=== PATIENT | female | born 1945 | race Hispanic/Latino ===

== ENCOUNTER 2023-01-21 09:24 | Emergency (ER) | payer MEDICARE, OTHER, SELFPAY ==
[2023-01-21 09:28] VITALS: BP 143/76; PULSE 70; RESP 14; TEMP 36.3; O2SAT 98; BMI 27.3
--- NOTE | 2023-01-21 10:52 | ED.ABDPAIN ---
HPI - Abdominal Pain <Frank Lao PA-C - Last Filed: 01/21/23 19:12> General Chief Complaint: Abdominal Pain Stated Complaint: L/ lower ABD Hernia pain Time Seen by Provider: 01/21/23 10:17 Source: patient Mode of arrival: Ambulatory History of Present Illness HPI narrative: 77-year-old female with past medical history inguinal hernia on the left side, presents to the ED with 1 day of left lower quadrant pain. Patient states that her hernia disappeared earlier today, instead to be replaced by left lower quadrant pain. Patient denies fever, chills, nausea, vomiting, chest pain, shortness of breath, dysuria, lightheadedness, dizziness, syncope. Related Data Previous Rx's Medication Instructions Recorded ciprofloxacin HCl 500 mg tablet 500 mg PO Q12H 5 days #10 tabs 01/21/23 metronidazole 500 mg tablet 500 mg PO Q8H 5 days #15 tabs 01/21/23 Allergies Allergy/AdvReac Type Severity Reaction Status Date / Time nitrofurantoin Allergy Verified 01/21/23 09:28 Review of Systems <Frank Lao PA-C - Last Filed: 01/21/23 19:12> Review of Systems ROS Unobtainable: All systems reviewed & are unremarkable except as noted in HPI and below Constitutional Constitutional: Denies chills, Denies fatigue, Denies fever(s), Denies frequent falls, Denies lethargy and Denies weakness Eyes Eyes: Denies change in vision, Denies eye discharge, Denies irritation and Denies loss of vision ENT Ears, Nose, Mouth, and Throat: Denies change in voice, Denies dizziness, Denies neck pain, Denies sore throat and Denies throat swelling Cardiovascular Cardiovascular: Denies chest pain, Denies irregular heart rhythm, Denies lightheadedness, Denies palpitations, Denies dyspnea, Denies dyspnea on exertion and Denies orthopnea Respiratory Respiratory: Denies cough, Denies dyspnea, Denies dyspnea on exertion and Denies wheezing Gastrointestinal Gastrointestinal: Reports abdominal pain, Denies change in bowel habits, Denies diarrhea, Denies nausea and Denies vomiting Genitourinary Genitourinary: Denies hematuria, Denies flank pain, Denies urinary incontinence and Denies urinary urgency Musculoskeletal Musculoskeletal: Denies back pain, Denies muscle weakness, Denies neck pain, Denies numbness and Denies tingling Integumentary/Breasts Skin/Breast: Denies pruritus, Denies erythema, Denies rash and Denies wounds Neurologic Neurologic: Denies behavioral changes, Denies confusion, Denies dizziness, Denies frequent falls, Denies loss of vision, Denies numbness, Denies tingling and Denies weakness Psychiatric Psychiatric: Denies anxiety, Denies behavioral changes, Denies confusion, Denies depression, Denies homicidal ideation and Denies suicidal ideation Endocrine Endocrine: Denies fatigue, Denies flushing and Denies palpitations Hematologic/Lymphatic Hematologic/Lymphatic: Denies easy bruising Allergic/Immunologic Allergic/Immunologic: Denies urticaria, Denies throat swelling and Denies wheezing Patient History <Frank Lao PA-C - Last Filed: 01/21/23 19:12> Social History Smoking Status: Unknown if ever smoked Smoking Status: Unknown if ever smoked alcohol intake frequency: holidays/special occasions only Substance Use Type: does not use Exam <Frank Lao PA-C - Last Filed: 01/21/23 19:12> Narrative Exam Narrative: Const General:?cooperative, healthy appearing and comfortable [facility] Head:?normal to inspection Ears:?hearing grossly normal bilaterally Nose:?external nose normal Face and sinus:?normal facial exam and sinuses nontender Mouth:?oral mucosae normal Throat:?posterior oropharynx normal Eyes General:?appearance normal, both eyes and all related structures Neck Neck:?normal visual inspection and no lymphadenopathy noted Resp Effort & Inspection:?normal respiratory effort Auscultation:?clear to auscultation bilaterally Cardio Rate:?regular rate Rhythm:?regular rhythm GI Abdomen is soft, nondistended. Abdomen is tender to palpation in the left lower quadrant. There is no CVA tenderness. Neuro General:?patient alert, patient awake and patient oriented x3 Initial Vital Signs Initial Vital Signs: Vital Signs Temperature 97.3 F L 01/21/23 09:28 Pulse Rate 70 01/21/23 09:28 Respiratory Rate 14 01/21/23 09:28 Blood Pressure 143/76 H 01/21/23 09:28 Pulse Oximetry 98 01/21/23 09:28 Oxygen Delivery Method Room Air 01/21/23 09:28 <Meagan Paul DO - Last Filed: 01/21/23 20:47> Initial Vital Signs Initial Vital Signs: Vital Signs Temperature 97.3 F L 01/21/23 09:28 Pulse Rate 70 01/21/23 09:28 Respiratory Rate 14 01/21/23 09:28 Blood Pressure 143/76 H 01/21/23 09:28 Pulse Oximetry 98 01/21/23 09:28 Oxygen Delivery Method Room Air 01/21/23 09:28 Course <Frank Lao PA-C - Last Filed: 01/21/23 19:12> Orders Ordered: Discontinued Medications Ketorolac Tromethamine (Ketorolac 30 Mg/Ml Vial) 15 mg IV NOW ONE Stop: 01/21/23 11:00 Last Admin: 01/21/23 11:09 Dose: 15 mg Documented By: CTS Vital Signs Vital signs: Vital Signs - 8 hr 01/21/23 13:42 Pulse Rate 74 Respiratory Rate 16 Blood Pressure 136/84 Pulse Oximetry 97 Oxygen Delivery Method Room Air <Meagan Paul DO - Last Filed: 01/21/23 20:47> Orders Ordered: Discontinued Medications Ketorolac Tromethamine (Ketorolac 30 Mg/Ml Vial) 15 mg IV NOW ONE Stop: 01/21/23 11:00 Last Admin: 01/21/23 11:09 Dose: 15 mg Documented By: CTS Vital Signs Vital signs: Vital Signs - 8 hr 01/21/23 13:42 Pulse Rate 74 Respiratory Rate 16 Blood Pressure 136/84 Pulse Oximetry 97 Oxygen Delivery Method Room Air MDM - Abdominal Pain <DANIELLE Baptiste Last Filed: 01/21/23 19:12> Lab Data 01/21/23 10:55 01/21/23 10:55 Labs: Lab Results 01/21/23 01/21/23 01/21/23 Range/Units 10:55 10:55 10:55 WBC 8.3 (4.5-11.0) X10^3/uL RBC 4.46 (4.0-5.2) X10^6/uL Hgb 13.3 (12.0-16.0) g/dL Hct 39.5 (36-46) % MCV 88.6 (80-100) fL MCH 29.8 (26-34) PG MCHC 33.7 (30-36) % RDW 15.4 H (11.6-14.8) % Plt Count 262 (150-400) X10^3/uL Neut % (Auto) 62.5 (50-75) % Lymph % (Auto) 27.0 (25-40) % [place] % (Auto) 7.6 (3-14) % Eos % (Auto) 2.0 (2-4) % Baso % (Auto) 0.9 (0-2) % Neut # (Auto) 5200 (9115-9335) /uL Lymph # (Auto) 2200 (5458-3467) /uL [place] # (Auto) 600 (0-900) /uL Eos # (Auto) 200 (0-450) /uL Baso # (Auto) 100 (0-100) /uL Sodium 137 (137-145) mmol/L Potassium 3.7 (3.4-5.1) mmol/L Chloride 103 (98-107) mmol/L Carbon Dioxide 28 (22-32) mmol/L BUN 14 (7-17) mg/dL Creatinine 0.71 (0.52-1.04) mg/dL Estimated GFR > 60 (>60) mL/min BUN/Creatinine Ratio 19.7 (6-22) Glucose 88 (80-110) mg/dL Calcium 8.6 (8.4-10.2) mg/dL Total Bilirubin 0.7 (0.2-1.3) mg/dL AST 24 (14-36) IU/L ALT 15 (<35) IU/L Alkaline Phosphatase 82 (38-126) U/L Total Protein 7.1 (6.3-8.2) g/dL Albumin 3.8 (3.5-5.0) g/dL Globulin 3.3 (1.7-4.1) g/dL Albumin/Globulin Ratio 1.2 (1.0-2.8) Lipase 68 (23-300) U/L Urine Color Yellow Urine Appearance Clear Urine pH 6.0 (4.5-8.0) Ur Specific [place] 1.015 (1.000-1.035) Urine Protein Negative (Negative) Urine Glucose (UA) Negative (Negative) g/dL Urine Ketones Negative (NEGATIVE) Urine Occult Blood Trace-lysed (Negative) Urine Nitrate Negative (Negative) Urine Bilirubin Negative (NEGATIVE) Urine Urobilinogen 0.2 (0.2) E.U./dL Ur Leukocyte Esterase Negative (NEGATIVE) Urine RBC 0-1/hpf (0-5/HPF) Urine WBC 0-1/hpf (0-5/HPF) Ur Squamous Epith Cells 0-1 /hpf (0-5/HPF) Urine Bacteria None seen (None) Ur Culture Indicated? Cult not indicated MDM Narrative Medical decision making narrative: 77-year-old female with past medical history inguinal hernia on the left side, presents to the ED with 1 day of left lower quadrant pain. Concern for incarcerated versus strangulated hernia versus diverticulitis versus other intra-abdominal pathology versus other. Will obtain labs, lipase, CT abdomen pelvis. Will give ketorolac for pain. Patient's symptoms improved with ketorolac. CT abdomen pelvis shows acute uncomplicated diverticulitis. Prescribed antibiotics for patient. Recommend clear liquid diet for the next 3 days gradually increasing diet as tolerated. ED return precautions were discussed with patient. Patient verbalized understanding. Medical records reviewed: Yes <Meagan Paul DO - Last Filed: 01/21/23 20:47> Lab Data Labs: Lab Results 01/21/23 01/21/23 01/21/23 Range/Units 10:55 10:55 10:55 WBC 8.3 (4.5-11.0) X10^3/uL RBC 4.46 (4.0-5.2) X10^6/uL Hgb 13.3 (12.0-16.0) g/dL Hct 39.5 (36-46) % MCV 88.6 (80-100) fL MCH 29.8 (26-34) PG MCHC 33.7 (30-36) % RDW 15.4 H (11.6-14.8) % Plt Count 262 (150-400) X10^3/uL Neut % (Auto) 62.5 (50-75) % Lymph % (Auto) 27.0 (25-40) % [place] % (Auto) 7.6 (3-14) % Eos % (Auto) 2.0 (2-4) % Baso % (Auto) 0.9 (0-2) % Neut # (Auto) 5200 (7299-0986) /uL Lymph # (Auto) 2200 (7022-6844) /uL [place] # (Auto) 600 (0-900) /uL Eos # (Auto) 200 (0-450) /uL Baso # (Auto) 100 (0-100) /uL Sodium 137 (137-145) mmol/L Potassium 3.7 (3.4-5.1) mmol/L Chloride 103 (98-107) mmol/L Carbon Dioxide 28 (22-32) mmol/L BUN 14 (7-17) mg/dL Creatinine 0.71 (0.52-1.04) mg/dL Estimated GFR > 60 (>60) mL/min BUN/Creatinine Ratio 19.7 (6-22) Glucose 88 (80-110) mg/dL Calcium 8.6 (8.4-10.2) mg/dL Total Bilirubin 0.7 (0.2-1.3) mg/dL AST 24 (14-36) IU/L ALT 15 (<35) IU/L Alkaline Phosphatase 82 (38-126) U/L Total Protein 7.1 (6.3-8.2) g/dL Albumin 3.8 (3.5-5.0) g/dL Globulin 3.3 (1.7-4.1) g/dL Albumin/Globulin Ratio 1.2 (1.0-2.8) Lipase 68 (23-300) U/L Urine Color Yellow Urine Appearance Clear Urine pH 6.0 (4.5-8.0) Ur Specific [place] 1.015 (1.000-1.035) Urine Protein Negative (Negative) Urine Glucose (UA) Negative (Negative) g/dL Urine Ketones Negative (NEGATIVE) Urine Occult Blood Trace-lysed (Negative) Urine Nitrate Negative (Negative) Urine Bilirubin Negative (NEGATIVE) Urine Urobilinogen 0.2 (0.2) E.U./dL Ur Leukocyte Esterase Negative (NEGATIVE) Urine RBC 0-1/hpf (0-5/HPF) Urine WBC 0-1/hpf (0-5/HPF) Ur Squamous Epith Cells 0-1 /hpf (0-5/HPF) Urine Bacteria None seen (None) Ur Culture Indicated? Cult not indicated Discharge Plan Departure Patient Disposition: Home Clinical Impression: Diverticulitis Instructions: DI for Diverticulitis Activity Restrictions/Additional Instructions: You were evaluated in the ED today for abdominal pain. Your labs were normal. Your CT abdomen and pelvis does show acute diverticulitis, which is an infection in the colon. You are being prescribed antibiotics for this. Please take those as prescribed. Please consume a clear liquid diet for the next 3 days, and slowly advance the diet as it feels comfortable. Please return to the ED if you have worsening symptoms, persistent vomiting, fever, chills. Prescriptions: New metronidazole 500 mg tablet 500 mg PO Q8H 5 Days Qty: 15 0RF ciprofloxacin HCl 500 mg tablet 500 mg PO Q12H 5 Days Qty: 10 0RF Referrals: Miscellaneous,Doctor, MD [Primary Care Provider] - Stand Alone Forms: Patient Portal/API, Work Release Note <Meagan Paul DO - Last Filed: 01/21/23 20:47> Cosign ED Attending Eanature Attestation: I was immediately available in the department for consultation. Documentation has been reviewed.
--- NOTE | 2023-01-21 10:59 | DI.CT.S_ITS ---
PROCEDURE: CT ABDOMEN PELVIS W CON INDICATIONS: LLQ pain TECHNIQUE: After the administration of intravenous contrast, axial sections acquired from the lung bases to the pubic symphysis. Coronal and sagittal reformats were performed. For radiation dose reduction, the following was used: automated exposure control, adjustment of mA and/or kV according to patient size. COMPARISON: None. FINDINGS: Image quality: Excellent. Lung bases: 1 cm calcification noted at the right lung base Heart: No significant findings. ABDOMEN: Liver: Unremarkable. Small focus of hepatic fatty infiltration noted adjacent to the falciform ligament Gallbladder: Unremarkable. Biliary ducts: Unremarkable. Pancreas: Unremarkable. Spleen: Unremarkable. Adrenal Glands: Unremarkable. Kidneys and Ureters: Unremarkable. Stomach and Bowel: Multiple diverticula arise from the sigmoid colon. In the proximal sigmoid colon there is wall thickening and pericolonic inflammatory change, consistent with acute diverticulitis. No adjacent abscess or free air present. Peritoneum: No abnormal intraperitoneal fluid. No free air. Ventral Wall: Left inguinal hernia contains fat and a small amount of fluid without bowel involvement. Abdominal Nodes: No retroperitoneal or mesenteric adenopathy by size criteria. Vessels: Bilateral iliac stents present. PELVIS: Pelvic Organs: Unremarkable. Bladder: Unremarkable. Pelvic Nodes: No enlarged lymph nodes. Miscellaneous: No hernias are seen. Bones: Degenerative disc disease and arthropathy noted in the lower lumbar spine. IMPRESSION: Acute sigmoid diverticulitis without evidence of free air or bowel obstruction. No abscess. Left inguinal hernia contains fat without bowel involvement Calcified granuloma, right lung base Approved by: Nils Lopez M.D. on 01/21/2023 at 11:55
[2023-01-21 11:08] LABS: Add Manual Diff / Slide Review NO; Basophils Absolute Auto 100 /uL (0-100); Basophils Percent Auto 0.9 % (0-2); Eosinophils Absolute Auto 200 /uL (0-450); Hematocrit 39.5 % (36-46); Hemoglobin 13.3 g/dL (12.0-16.0); Lymphocytes Absolute Auto 2200 /uL (1100-4500); Mean Corpuscular HGB Conc 33.7 % (30-36); Mean Corpuscular Hemoglobin 29.8 PG (26-34); Mean Corpuscular Volume 88.6 fL (80-100); Monocytes Absolute Auto 600 /uL (0-900); Monocytes Percent Auto 7.6 % (3-14); Neutrophils Absolute Auto 5200 /uL (1500-7000); Neutrophils Percent Auto 62.5 % (50-75); Platelet Count 262 X10^3/uL (150-400); Red Blood Cell Count 4.46 X10^6/uL (4.0-5.2); Red Cell Distribution Width 15.4 % (11.6-14.8); White Blood Cell Count 8.3 X10^3/uL (4.5-11.0)
[2023-01-21] MEDS: KETOROLAC 30 MG/ML VIAL 15 MG IV (11:09)
[2023-01-21 11:25] LABS: Appearance Urine UA CLEAR; Bilirubin Urine UA NEGATIVE (NEGATIVE); Color Urine UA YELLOW; Glucose Urine UA NEGATIVE (Negative); Ketones Urine UA NEGATIVE (NEGATIVE); Leukocyte Esterase Urine UA NEGATIVE (NEGATIVE); Nitrite Urine UA NEGATIVE (Negative); Occult Blood Urine UA TRACE-LYSED (Negative); Protein Urine UA NEGATIVE (Negative); Specific Gravity Urine UA 1.015 (1.000-1.035); Urobilinogen Urine UA 0.2 E.U./dL (0.2)
[2023-01-21 11:33] LABS: Alanine Aminotransferase 15 IU/L (<35); Albumin 3.8 g/dL (3.5-5.0); Albumin Globulin Ratio 1.2 (1.0-2.8); Alkaline Phosphatase 82 U/L (38-126); Aspartate Aminotransferase 24 IU/L (14-36); BUN Creatinine Ratio 19.7 (6-22); Bilirubin Total 0.7 mg/dL (0.2-1.3); Blood Urea Nitrogen 14 mg/dL (7-17); Calcium 8.6 mg/dL (8.4-10.2); Carbon Dioxide 28 mmol/L (22-32); Chloride 103 mmol/L (98-107); Estimated Glomerular Filt Rate > 60 mL/min (>60); Globulin 3.3 g/dL (1.7-4.1); Glucose 88 mg/dL (80-110); HEMOLYSIS < 15 (0-50); Lipase 68 U/L (23-300); Potassium 3.7 mmol/L (3.4-5.1); Sodium 137 mmol/L (137-145); Total Protein 7.1 g/dL (6.3-8.2)
[2023-01-21 11:38] LABS: Bacteria Urine None Seen; RBC Urine 0-1/HPF (0-5/HPF); Squamous Epithelial Cell Urine 0-1 /HPF (0-5/HPF); WBC Urine 0-1/HPF (0-5/HPF)
[2023-01-21 11:39] LABS: Culture Indicated Urine Cult Not Indicated
[2023-01-21 13:42] VITALS: BP 136/84; PULSE 74; RESP 16; O2SAT 97
== END 2023-01-21 13:42 | disposition home or self-care (01) ==
PROVIDERS: Emergency Medicine; Emergency Provider Student in an Organized Health Care Education/Training Program
DX: K57.92 Diverticulitis of intestine, part unspecified, without perforation or abscess without bleeding (principal)
CPT/HCPCS: 36415; 74177; 80053; 81001; 83690; 85025; 96374; 99284; J1885; Q9967

== ENCOUNTER 2023-03-03 08:18 | Emergency (ER) | payer MEDICARE, OTHER, SELFPAY ==
[2023-03-03] VITALS (7 sets, daily range): BP systolic 120–159; BP diastolic 60–75; PULSE 61–67; RESP 20–26; TEMP 36.6; O2SAT 96–99; BMI 27.3
[2023-03-03 08:55] LABS: Add Manual Diff / Slide Review NO; Basophils Absolute Auto 100 /uL (0-100); Basophils Percent Auto 1.1 % (0-2); Eosinophils Absolute Auto 200 /uL (0-450); Hematocrit 40.9 % (36-46); Hemoglobin 13.8 g/dL (12.0-16.0); Lymphocytes Absolute Auto 2100 /uL (1100-4500); Lymphocytes Percent Auto 29.5 % (25-40); Mean Corpuscular HGB Conc 33.7 % (30-36); Mean Corpuscular Hemoglobin 29.3 PG (26-34); Mean Corpuscular Volume 87.1 fL (80-100); Monocytes Absolute Auto 500 /uL (0-900); Monocytes Percent Auto 6.6 % (3-14); Neutrophils Absolute Auto 4200 /uL (1500-7000); Neutrophils Percent Auto 59.8 % (50-75); Platelet Count 310 X10^3/uL (150-400); Red Cell Distribution Width 14.8 % (11.6-14.8)
[2023-03-03 09:00] LABS: INR 1.1 (0.9-1.3); Prothrombin Time 12.5 SECONDS (10.1-12.7)
--- NOTE | 2023-03-03 09:08 | ED_ITS ---
HPI - Abdominal Pain General Chief Complaint: Abdominal Pain Stated Complaint: pain LT side lower abd T-3 Time Seen by Provider: 03/03/23 08:48 Source: patient and family Mode of arrival: Ambulatory History of Present Illness HPI narrative: Patient 77-year-old female history of hypertension coronary arteries presenting today with left lower quadrant pain. She reports that she is a left inguinal hernia but her pain is in a different spot. It has been there for the last 3 days. Sharp stabbing nonradiating. No change in bowel movements except that she does report some mucus. No blood. Denies nausea vomiting or fever. No chest pain palpitations or shortness of breath. No painful or frequent urination. Related Data Previous Rx's Medication Instructions Recorded ciprofloxacin HCl 500 mg tablet 500 mg PO BID #14 tabs 03/03/23 (Cipro) metronidazole 500 mg tablet 500 mg PO Q8H 7 days #21 tabs 03/03/23 Allergies Allergy/AdvReac Type Severity Reaction Status Date / Time nitrofurantoin Allergy Verified 01/21/23 09:28 Review of Systems Review of Systems ROS Unobtainable: All systems reviewed & are unremarkable except as noted in HPI and below Patient History Social History Smoking Status: Unknown if ever smoked Smoking Status: Unknown if ever smoked alcohol intake frequency: holidays/special occasions only Substance Use Type: does not use Exam Initial Vital Signs Initial Vital Signs: Vital Signs Temperature 97.9 F 03/03/23 08:24 Pulse Rate 64 03/03/23 08:24 Respiratory Rate 20 03/03/23 08:24 Blood Pressure 122/62 03/03/23 08:24 Pulse Oximetry 99 03/03/23 08:24 Oxygen Delivery Method Room Air 03/03/23 08:24 GENERAL: Alert pleasant 77-year-old female and in no acute distress. HEENT: Head atraumatic,EOMI, pupils reactive, face symmetric, moist mucous membranes CARDIOVASCULAR: Regular rate and rhythm without murmurs, rubs or gallops. RESPIRATORY: Breath sounds equal bilaterally, no wheezes rales or rhonchi. ABDOMEN: Soft, left lower quadrant pain no guarding no rebound EXTREMITIES: Normal range of motion, no clubbing or edema. Neurovascularly intact NEUROLOGICAL: Alert and oriented x4. SKIN: Warm, dry, no laceration, no petechiae, no rashes or lesions. Course Orders Ordered: Discontinued Medications Ondansetron HCl (Ondansetron 4 Mg/2 Ml Inj) 4 mg IV NOW PRN PRN Reason: Nausea And Vomiting Ondansetron HCl (Ondansetron 4 Mg Odt) 4 mg PO NOW PRN PRN Reason: Nausea And Vomiting Vital Signs Vital signs: Vital Signs - 8 hr 03/03/23 08:24 03/03/23 08:37 03/03/23 08:37 Temperature 97.9 F Pulse Rate 64 67 Respiratory Rate 20 Blood Pressure 122/62 128/74 Pulse Oximetry 99 98 Oxygen Delivery Method Room Air 03/03/23 09:00 03/03/23 09:00 03/03/23 09:30 Temperature Pulse Rate 63 Respiratory Rate 20 Blood Pressure 159/75 H 139/70 Pulse Oximetry 98 Oxygen Delivery Method 03/03/23 09:30 Temperature Pulse Rate 65 Respiratory Rate 22 Blood Pressure Pulse Oximetry 96 Oxygen Delivery Method MDM - Abdominal Pain Lab Data 03/03/23 08:45 03/03/23 08:45 Labs: Lab Results 03/03/23 03/03/23 03/03/23 Range/Units 08:45 08:45 08:45 WBC 7.0 (4.5-11.0) X10^3/uL RBC 4.70 (4.0-5.2) X10^6/uL Hgb 13.8 (12.0-16.0) g/dL Hct 40.9 (36-46) % MCV 87.1 (80-100) fL MCH 29.3 (26-34) PG MCHC 33.7 (30-36) % RDW 14.8 (11.6-14.8) % Plt Count 310 (150-400) X10^3/uL Neut % (Auto) 59.8 (50-75) % Lymph % (Auto) 29.5 (25-40) % [place] % (Auto) 6.6 (3-14) % Eos % (Auto) 3.0 (2-4) % Baso % (Auto) 1.1 (0-2) % Neut # (Auto) 4200 (2467-3500) /uL Lymph # (Auto) 2100 (6806-5352) /uL [place] # (Auto) 500 (0-900) /uL Eos # (Auto) 200 (0-450) /uL Baso # (Auto) 100 (0-100) /uL PT 12.5 (10.1-12.7) SECONDS INR 1.1 (0.9-1.3) Sodium 135 L (137-145) mmol/L Potassium 3.5 (3.4-5.1) mmol/L Chloride 100 (98-107) mmol/L Carbon Dioxide 29 (22-32) mmol/L BUN 20 H (7-17) mg/dL Creatinine 0.90 (0.52-1.04) mg/dL Estimated GFR > 60 (>60) mL/min BUN/Creatinine Ratio 22.2 H (6-22) Glucose 101 (80-110) mg/dL Calcium 9.0 (8.4-10.2) mg/dL Total Bilirubin 0.6 (0.2-1.3) mg/dL AST 24 (14-36) IU/L ALT 20 (<35) IU/L Alkaline Phosphatase 101 (38-126) U/L Total Protein 7.7 (6.3-8.2) g/dL Albumin 4.1 (3.5-5.0) g/dL Globulin 3.6 (1.7-4.1) g/dL Albumin/Globulin Ratio 1.1 (1.0-2.8) Lipase 108 (23-300) U/L Urine RBC (0-5/HPF) Urine WBC (0-5/HPF) Ur Squamous Epith Cells (0-5/HPF) Urine Bacteria (None) Ur Culture Indicated? 03/03/23 Range/Units 09:49 WBC (4.5-11.0) X10^3/uL RBC (4.0-5.2) X10^6/uL Hgb (12.0-16.0) g/dL Hct (36-46) % MCV (80-100) fL MCH (26-34) PG MCHC (30-36) % RDW (11.6-14.8) % Plt Count (150-400) X10^3/uL Neut % (Auto) (50-75) % Lymph % (Auto) (25-40) % [place] % (Auto) (3-14) % Eos % (Auto) (2-4) % Baso % (Auto) (0-2) % Neut # (Auto) (2862-8256) /uL Lymph # (Auto) (6313-4625) /uL [place] # (Auto) (0-900) /uL Eos # (Auto) (0-450) /uL Baso # (Auto) (0-100) /uL PT (10.1-12.7) SECONDS INR (0.9-1.3) Sodium (137-145) mmol/L Potassium (3.4-5.1) mmol/L Chloride (98-107) mmol/L Carbon Dioxide (22-32) mmol/L BUN (7-17) mg/dL Creatinine (0.52-1.04) mg/dL Estimated GFR (>60) mL/min BUN/Creatinine Ratio (6-22) Glucose (80-110) mg/dL Calcium (8.4-10.2) mg/dL Total Bilirubin (0.2-1.3) mg/dL AST (14-36) IU/L ALT (<35) IU/L Alkaline Phosphatase (38-126) U/L Total Protein (6.3-8.2) g/dL Albumin (3.5-5.0) g/dL Globulin (1.7-4.1) g/dL Albumin/Globulin Ratio (1.0-2.8) Lipase (23-300) U/L Urine RBC 0-1/hpf (0-5/HPF) Urine WBC 0-1/hpf (0-5/HPF) Ur Squamous Epith Cells 0-1 /hpf (0-5/HPF) Urine Bacteria None seen (None) Ur Culture Indicated? Cult not indicated Point of care testing: Urine Dip Bedside Urine Glucose Negative Bedside Urine Bilirubin - Negative Bedside Urine Ketone - Negative Urine Specific [place] 1.010 Bedside Urine Occult Blood +/- Bedside Urine pH 6.0 Bedside Urine Protein - Negative Bedside Urine Urobilinogen - Negative Bedside Urine Nitrite - Negative Bedside Urine Leukocytes - Negative Esterase Imaging Data CT scan - abdomen/pelvis: Radiologist's Impression: PROCEDURE:? CT ABDOMEN PELVIS W CON ? INDICATIONS:? LLq pain ? TECHNIQUE:? After the administration of intravenous contrast, axial sections acquired from the lung bases to the pubic symphysis.? Coronal and sagittal reformats were performed.? For radiation dose reduction, the following was used:? automated exposure control, adjustment of mA and/or kV according to patient size.? ? COMPARISON:? [facility], CT, CT ABDOMEN PELVIS W CON, 01/21/2023, 11:49. ? FINDINGS:? Image quality:? Excellent.? ? Lung bases:? Calcified granuloma in the right lower lobe. Heart:? No significant findings. ? ABDOMEN: Liver:? Unremarkable.? ? Gallbladder:? Unremarkable.? ? Biliary ducts:? Unremarkable.? ? Pancreas:? Unremarkable.? ? Spleen:? Unremarkable.? ? Adrenal Glands:? Unremarkable.? ? Kidneys and Ureters:? Junctional cortical defect of the superior pole of the low left kidney.? No hydronephrosis.? No nephrolithiasis. ? Stomach and Bowel:? Mild focal wall thickening of the distal descending colon, with associated pericolonic fat stranding surrounding a diverticulum.? No evidence perforation.? No adjacent abscess. Peritoneum:? No abnormal intraperitoneal fluid.? No free air.? ? Ventral Wall: ? No hernias.? Abdominal Nodes:? No retroperitoneal or mesenteric adenopathy by size criteria.? Vessels:? Aorta and inferior vena cava are normal in size.? Venous stents of the iliac veins. ? PELVIS: Pelvic Organs:? Unremarkable.? ? Bladder:? Trace air within the urinary bladder Pelvic Nodes: No enlarged lymph nodes.? Miscellaneous:? Left inguinal hernia containing fat. ? Bones:? Unremarkable.? IMPRESSION:? Diverticulitis of the distal descending colon.? No evidence perforation or abscess. ? Moderate left inguinal hernia containing fat. ? ? Dictated by: Gómez Livingston M.D. on 03/03/2023 at 9:58 ? ? ECG Data Interpretation: Normal sinus rhythm rate 62 RI interval 180 QRS [address] changes no T- wave inversions MDM Narrative Medical decision making narrative: Patient is 77-year-old female history of coronary artery disease hypertension presenting with left lower quadrant pain for last couple of days. Symptoms and CT consistent with diverticulitis without complication. This is patient's 2nd episode of diverticulitis. She 1st have episode January 21. She says her pain completely resolved. She was put on Cipro and Flagyl. She was then diagnosed with a UTI last week and put on antibiotics for that. She definitely needs a colonoscopy for a 2nd episode of diverticulitis. She is not had a colonoscopy have discussed this with both patient and her daughter. She is given a general surgeries number. I think reasonable to treat her again with ciprofloxacin and Flagyl it seemed to work last time. She is not requiring anything for pain. Blood work is reassuring without leukocytosis. At this time antibiotics and outpatient management. Discharge Plan Departure Patient Disposition: Home Clinical Impression: Diverticulitis Instructions: DI for Diverticulitis Activity Restrictions/Additional Instructions: *You have been diagnosed with diverticulitis *What to do: At this time recommend low-fiber diet until pain has improved and then resume high-fiber diet. Continue to drink fluids. You definitely need a colonoscopy. This is your 2nd diverticulitis in 2 months. Please call to schedule appointment. *Continue to take medications as directed--> SENT TO [facility] Cipro 500 mg twice a day for 7 days Flagyl 500 mg 3 times a day for 7 days Tylenol 650 mg every 6 hours if needed for [id number] pain *Follow up with your primary care provider in 2-3 days or call [phone] *Return to ER if you should have increasing pain bloody stools fever or any new, worsening or concerning symptoms Prescriptions: New metronidazole 500 mg tablet 500 mg PO Q8H 7 Days Qty: 21 0RF ciprofloxacin HCl [Cipro] 500 mg tablet 500 mg PO BID Qty: 14 0RF Referrals: [facility] [Provider Group] Miscellaneous,DoctorMD [Primary Care Provider] - Stand Alone Forms: Patient Portal/API
--- NOTE | 2023-03-03 09:12 | DI.CT.S_ITS ---
PROCEDURE: CT ABDOMEN PELVIS W CON INDICATIONS: LLq pain TECHNIQUE: After the administration of intravenous contrast, axial sections acquired from the lung bases to the pubic symphysis. Coronal and sagittal reformats were performed. For radiation dose reduction, the following was used: automated exposure control, adjustment of mA and/or kV according to patient size. COMPARISON: [facility], CT, CT ABDOMEN PELVIS W CON, 01/21/2023, 11:49. FINDINGS: Image quality: Excellent. Lung bases: Calcified granuloma in the right lower lobe. Heart: No significant findings. ABDOMEN: Liver: Unremarkable. Gallbladder: Unremarkable. Biliary ducts: Unremarkable. Pancreas: Unremarkable. Spleen: Unremarkable. Adrenal Glands: Unremarkable. Kidneys and Ureters: Junctional cortical defect of the superior pole of the low left kidney. No hydronephrosis. No nephrolithiasis. Stomach and Bowel: Mild focal wall thickening of the distal descending colon, with associated pericolonic fat stranding surrounding a diverticulum. No evidence perforation. No adjacent abscess. Peritoneum: No abnormal intraperitoneal fluid. No free air. Ventral Wall: No hernias. Abdominal Nodes: No retroperitoneal or mesenteric adenopathy by size criteria. Vessels: Aorta and inferior vena cava are normal in size. Venous stents of the iliac veins. PELVIS: Pelvic Organs: Unremarkable. Bladder: Trace air within the urinary bladder Pelvic Nodes: No enlarged lymph nodes. Miscellaneous: Left inguinal hernia containing fat. Bones: Unremarkable. IMPRESSION: Diverticulitis of the distal descending colon. No evidence perforation or abscess. Moderate left inguinal hernia containing fat. Dictated by: Gómez Livingston M.D. on 03/03/2023 at 9:58 Approved by: Gómez Livingston M.D. on 03/03/2023 at 10:01
[2023-03-03 09:17] LABS: Alanine Aminotransferase 20 IU/L (<35); Albumin 4.1 g/dL (3.5-5.0); Albumin Globulin Ratio 1.1 (1.0-2.8); Alkaline Phosphatase 101 U/L (38-126); Aspartate Aminotransferase 24 IU/L (14-36); BUN Creatinine Ratio 22.2 (6-22); Bilirubin Total 0.6 mg/dL (0.2-1.3); Blood Urea Nitrogen 20 mg/dL (7-17); Carbon Dioxide 29 mmol/L (22-32); Chloride 100 mmol/L (98-107); Estimated Glomerular Filt Rate > 60 mL/min (>60); Globulin 3.6 g/dL (1.7-4.1); Glucose 101 mg/dL (80-110); HEMOLYSIS < 15 (0-50); Lipase 108 U/L (23-300); Potassium 3.5 mmol/L (3.4-5.1); Sodium 135 mmol/L (137-145); Total Protein 7.7 g/dL (6.3-8.2)
[2023-03-03 10:14] LABS: Bacteria Urine None Seen; Culture Indicated Urine Cult Not Indicated; RBC Urine 0-1/HPF (0-5/HPF); Squamous Epithelial Cell Urine 0-1 /HPF (0-5/HPF); WBC Urine 0-1/HPF (0-5/HPF)
== END 2023-03-03 10:37 | disposition home or self-care (01) ==
PROVIDERS: Emergency Provider Emergency Medicine
DX: K57.92 Diverticulitis of intestine, part unspecified, without perforation or abscess without bleeding (principal)
CPT/HCPCS: 36415; 74177; 80053; 81003; 81015; 83690; 85025; 85610; 93005; 99284; Q9967

== ENCOUNTER 2023-03-07 20:22 | Emergency (ER) | payer MEDICARE, OTHER, SELFPAY ==
[2023-03-07 20:24] VITALS: BP 174/82; PULSE 70; RESP 17; TEMP 36.3; O2SAT 98; BMI 27.3
--- NOTE | 2023-03-07 21:11 | DI.CT.S_ITS ---
PROCEDURE: CT ABDOMEN PELVIS W CON INDICATIONS: h/o diverticulitis, continued abd pain TECHNIQUE: After the administration of IV contrast, axial sections were acquired from the lung bases to the pubic symphysis. Coronal and sagittal reformats were performed. For radiation dose reduction, the following was used: automated exposure control, adjustment of mA and/or kV according to patient size. COMPARISON: [facility], CT, CT ABDOMEN PELVIS W CON, 03/03/2023, 9:23. [facility], CT, CT ABDOMEN PELVIS W CON, 01/21/2023, 11:49. FINDINGS: Image quality: Excellent. Lung bases: Mild likely atelectasis can be seen at the lung bases. Heart: No significant findings. ABDOMEN: Liver: Unremarkable. Gallbladder: Unremarkable. Biliary ducts: Unremarkable. Pancreas: Unremarkable. Spleen: Unremarkable. Adrenal Glands: Unremarkable. Kidneys and Ureters: Unremarkable. Stomach and Bowel: Moderate wall thickening can be seen involving the distal descending colon and the proximal sigmoid colon, with moderate surrounding inflammatory change. The degree of inflammatory change is slightly worse than on the 03/03/2023 examination. No findings of perforation or abscess can be seen. A normal appendix is seen. No dilated loops of small bowel are seen. Ventral Wall: No hernia. Abdominal Nodes: No retroperitoneal or mesenteric adenopathy by size criteria. Vessels: Aorta and inferior vena cava are normal in size. Bilateral iliac vein stents are seen. Is PELVIS: Pelvic Organs: Unremarkable. Bladder: Unremarkable. Pelvic Nodes: No enlarged lymph nodes. Miscellaneous: A moderately sized left groin hernia can be seen, as before. Bones: Mild levoconvex scoliotic curvature is noted. Age-appropriate bony degenerative changes are seen. IMPRESSION: Mild interval worsening of the known diverticulitis involving the distal descending colon and the proximal sigmoid colon. No findings of perforation or abscess are seen. When clinically appropriate (following adequate treatment of the patient's current clinical episode) a colonoscopy is recommended for further evaluation for a potential underlying mass (if not already recently done). Additional findings: Normal appendix Bilateral iliac vein stents Fat containing left groin hernia Dictated by: Kurtis Griffin M.D. on 03/07/2023 at 21:19 Approved by: Kurtis Griffin M.D. on 03/07/2023 at 21:25
[2023-03-07 21:15] LABS: Add Manual Diff / Slide Review NO; Basophils Absolute Auto 100 /uL (0-100); Basophils Percent Auto 1.3 % (0-2); Eosinophils Absolute Auto 300 /uL (0-450); Eosinophils Percent Auto 4.7 % (2-4); Hemoglobin 13.5 g/dL (12.0-16.0); Lymphocytes Absolute Auto 2400 /uL (1100-4500); Lymphocytes Percent Auto 39.5 % (25-40); Mean Corpuscular HGB Conc 33.9 % (30-36); Mean Corpuscular Hemoglobin 29.5 PG (26-34); Monocytes Absolute Auto 600 /uL (0-900); Monocytes Percent Auto 9.5 % (3-14); Neutrophils Absolute Auto 2700 /uL (1500-7000); Platelet Count 292 X10^3/uL (150-400); Red Blood Cell Count 4.59 X10^6/uL (4.0-5.2); Red Cell Distribution Width 14.7 % (11.6-14.8)
[2023-03-07 21:22] LABS: Lactate (Lactic Acid) 1.1 mmol/L (0.7-2.1)
[2023-03-07 21:23] LABS: Alanine Aminotransferase 19 IU/L (<35); Albumin 3.9 g/dL (3.5-5.0); Albumin Globulin Ratio 1.1 (1.0-2.8); Alkaline Phosphatase 81 U/L (38-126); Aspartate Aminotransferase 31 IU/L (14-36); BUN Creatinine Ratio 15.4 (6-22); Bilirubin Total 0.3 mg/dL (0.2-1.3); Blood Urea Nitrogen 12 mg/dL (7-17); Calcium 8.9 mg/dL (8.4-10.2); Carbon Dioxide 28 mmol/L (22-32); Chloride 101 mmol/L (98-107); Estimated Glomerular Filt Rate > 60 mL/min (>60); Globulin 3.4 g/dL (1.7-4.1); Glucose 99 mg/dL (80-110); HEMOLYSIS 21 (0-50); Lipase 138 U/L (23-300); Potassium 3.8 mmol/L (3.4-5.1); Sodium 135 mmol/L (137-145); Total Protein 7.3 g/dL (6.3-8.2)
[2023-03-07 21:35] LABS: Bacteria Urine None Seen; Culture Indicated Urine Cult Not Indicated; RBC Urine 0-1/HPF (0-5/HPF); Squamous Epithelial Cell Urine None Seen (0-5/HPF); WBC Urine None Seen (0-5/HPF)
[2023-03-07 22:38] VITALS: PULSE 66; O2SAT 96
[2023-03-07 22:39] VITALS: BP 160/77; PULSE 66; O2SAT 98
[2023-03-07 23:00] VITALS: BP 128/67; PULSE 62; O2SAT 95
[2023-03-07 23:30] VITALS: BP 137/70; PULSE 68; O2SAT 95
--- NOTE | 2023-03-07 23:45 | ED_ITS ---
HPI - Abdominal Pain General Chief Complaint: Abdominal Pain Stated Complaint: Diverticulitis Time Seen by Provider: 03/07/23 23:44 Source: patient Mode of arrival: Ambulatory History of Present Illness HPI narrative: This is a 77-year-old female with history of hypertension, hypothyroidism, osteoporosis on an aspirin 81 mg daily with recent diagnosis of diverticulitis in January and on 03/03/2023 again. Patient was treated with Cipro and Flagyl both times. Patient states her abdominal pain which is on the left side radiates to her back has been getting better but she is been more nauseated she denies any vomiting. She denies fevers. She did have a little diarrhea today 2 times total. No bright red blood or melanotic stools. No dysuria urgency or frequency she does note she had a dose of 3 days of antibiotics and 714 at [facility]. Patient thinks it might be the antibiotics making her feel worse. She took her dose around noon and felt worse after that and it started to feel better. She did not take her evening dose. patient has a history of hysterectomy, hernia x2, left cardiac bypass. Patient is allergic to nitrof urantoin. No tobacco, alcohol or illicit. She is currently visiting the area until April but lives in [place]. Related Data Previous Rx's Medication Instructions Recorded ciprofloxacin HCl 500 mg tablet 500 mg PO BID #14 tabs 03/03/23 (Cipro) metronidazole 500 mg tablet 500 mg PO Q8H 7 days #21 tabs 03/03/23 amoxicillin 875 mg-potassium 1 tab PO BID #20 tabs 03/08/23 clavulanate 125 mg tablet Allergies Allergy/AdvReac Type Severity Reaction Status Date / Time nitrofurantoin Allergy Fainting Verified 03/07/23 20:24 Review of Systems Review of Systems ROS Unobtainable: All systems reviewed & are unremarkable except as noted in HPI and below Patient History Social History Smoking Status: Unknown if ever smoked Smoking Status: Unknown if ever smoked alcohol intake frequency: holidays/special occasions only Substance Use Type: does not use Exam Narrative Exam Narrative: GENERAL: Alert and oriented x three in no acute distress. HEENT: Head normocephalic, atraumatic, EOMI, pupils reactive, face symmetric, moist mucous membranes NECK: Supple, full range of motion CARDIOVASCULAR: Regular rate and rhythm without murmurs, rubs or gallops. RESPIRATORY: Breath sounds equal bilaterally, no wheezes rales or rhonchi. ABDOMEN: Soft, nontender. Nondistended. Normoactive bowel sounds all 4 quadrants. No guarding or rebound, rigidity, no mass : No CVA tenderness EXTREMITIES: Normal range of motion, no clubbing or edema. Neurovascularly intact NEUROLOGICAL: Cranial nerves II through XII grossly intact. Moving all extremities SKIN: Warm, dry, no petechiae, no rashes or lesions. Initial Vital Signs Initial Vital Signs: Vital Signs Temperature 97.3 F L 03/07/23 20:24 Pulse Rate 70 03/07/23 20:24 Respiratory Rate 17 03/07/23 20:24 Blood Pressure 174/82 H 03/07/23 20:24 Pulse Oximetry 98 03/07/23 20:24 Oxygen Delivery Method Room Air 03/07/23 20:24 Course Orders Ordered: ED Orders 03/07/23 21:11 CT abdomen pelvis w con Stat Discontinued Medications Amoxicillin/Clavulanate Potassium (Amoxicillin/Clav 875/125 Mg) 1 tab PO NOW ONE Stop: 03/08/23 00:02 Last Admin: 03/08/23 00:07 Dose: 1 tab Documented By: TAMMY Ondansetron HCl (Ondansetron 4 Mg Odt) 4 mg PO NOW PRN PRN Reason: Nausea And Vomiting Ondansetron HCl (Ondansetron 4 Mg/2 Ml Inj) 4 mg IV NOW PRN PRN Reason: Nausea And Vomiting Vital Signs Vital signs: Vital Signs - 8 hr 03/08/23 00:16 03/07/23 22:38 03/07/23 22:39 Temperature 97.6 F Pulse Rate 74 66 66 Respiratory Rate 16 Blood Pressure 154/78 H Pulse Oximetry 98 96 98 Oxygen Delivery Method Room Air 03/07/23 22:39 03/07/23 23:00 03/07/23 23:00 Temperature Pulse Rate 62 Respiratory Rate Blood Pressure 160/77 H 128/67 Pulse Oximetry 95 Oxygen Delivery Method 03/07/23 23:30 03/07/23 23:30 Temperature Pulse Rate 68 Respiratory Rate Blood Pressure 137/70 Pulse Oximetry 95 Oxygen Delivery Method MDM - Abdominal Pain Lab Data 03/07/23 20:58 03/07/23 20:58 Labs: Lab Results 03/07/23 03/07/23 03/07/23 Range/Units 20:55 20:58 20:58 WBC 6.0 (4.5-11.0) X10^3/uL RBC 4.59 (4.0-5.2) X10^6/uL Hgb 13.5 (12.0-16.0) g/dL Hct 40.0 (36-46) % MCV 87.0 (80-100) fL MCH 29.5 (26-34) PG MCHC 33.9 (30-36) % RDW 14.7 (11.6-14.8) % Plt Count 292 (150-400) X10^3/uL Neut % (Auto) 45.0 L (50-75) % Lymph % (Auto) 39.5 (25-40) % Dickenson % (Auto) 9.5 (3-14) % Eos % (Auto) 4.7 H (2-4) % Baso % (Auto) 1.3 (0-2) % Neut # (Auto) 2700 (1432-2873) /uL Lymph # (Auto) 2400 (9614-7062) /uL Dickenson # (Auto) 600 (0-900) /uL Eos # (Auto) 300 (0-450) /uL Baso # (Auto) 100 (0-100) /uL Sodium 135 L (137-145) mmol/L Potassium 3.8 (3.4-5.1) mmol/L Chloride 101 (98-107) mmol/L Carbon Dioxide 28 (22-32) mmol/L BUN 12 (7-17) mg/dL Creatinine 0.78 (0.52-1.04) mg/dL Estimated GFR > 60 (>60) mL/min BUN/Creatinine Ratio 15.4 (6-22) Glucose 99 (80-110) mg/dL Lactate (0.7-2.1) mmol/L Calcium 8.9 (8.4-10.2) mg/dL Total Bilirubin 0.3 (0.2-1.3) mg/dL AST 31 (14-36) IU/L ALT 19 (<35) IU/L Alkaline Phosphatase 81 (38-126) U/L Total Protein 7.3 (6.3-8.2) g/dL Albumin 3.9 (3.5-5.0) g/dL Globulin 3.4 (1.7-4.1) g/dL Albumin/Globulin Ratio 1.1 (1.0-2.8) Lipase 138 (23-300) U/L Urine RBC 0-1/hpf (0-5/HPF) Urine WBC None seen (0-5/HPF) Ur Squamous Epith Cells None seen (0-5/HPF) Urine Bacteria None seen (None) Ur Culture Indicated? Cult not indicated 03/07/23 Range/Units 20:58 WBC (4.5-11.0) X10^3/uL RBC (4.0-5.2) X10^6/uL Hgb (12.0-16.0) g/dL Hct (36-46) % MCV (80-100) fL MCH (26-34) PG MCHC (30-36) % RDW (11.6-14.8) % Plt Count (150-400) X10^3/uL Neut % (Auto) (50-75) % Lymph % (Auto) (25-40) % Dickenson % (Auto) (3-14) % Eos % (Auto) (2-4) % Baso % (Auto) (0-2) % Neut # (Auto) (3930-9171) /uL Lymph # (Auto) (7453-8433) /uL Dickenson # (Auto) (0-900) /uL Eos # (Auto) (0-450) /uL Baso # (Auto) (0-100) /uL Sodium (137-145) mmol/L Potassium (3.4-5.1) mmol/L Chloride (98-107) mmol/L Carbon Dioxide (22-32) mmol/L BUN (7-17) mg/dL Creatinine (0.52-1.04) mg/dL Estimated GFR (>60) mL/min BUN/Creatinine Ratio (6-22) Glucose (80-110) mg/dL Lactate 1.1 (0.7-2.1) mmol/L Calcium (8.4-10.2) mg/dL Total Bilirubin (0.2-1.3) mg/dL AST (14-36) IU/L ALT (<35) IU/L Alkaline Phosphatase (38-126) U/L Total Protein (6.3-8.2) g/dL Albumin (3.5-5.0) g/dL Globulin (1.7-4.1) g/dL Albumin/Globulin Ratio (1.0-2.8) Lipase (23-300) U/L Urine RBC (0-5/HPF) Urine WBC (0-5/HPF) Ur Squamous Epith Cells (0-5/HPF) Urine Bacteria (None) Ur Culture Indicated? Point of care testing: Urine Dip Bedside Urine Glucose Negative Bedside Urine Bilirubin - Negative Bedside Urine Ketone - Negative Urine Specific Jennings 1.01 Bedside Urine Occult Blood +/- Bedside Urine pH 6.0 Bedside Urine Protein - Negative Bedside Urine Urobilinogen - Negative Bedside Urine Nitrite - Negative Bedside Urine Leukocytes - Negative Esterase Imaging Data CT scan - abdomen/pelvis: Radiologist's Impression: DD/ TD/TT: 03/07/23 PROCEDURE:? CT ABDOMEN PELVIS W CON ? INDICATIONS:? h/o diverticulitis, continued abd pain ? TECHNIQUE:? After the administration of IV contrast, axial sections were acquired from the l kojo bases to the pubic symphysis.? Coronal and sagittal reformats were performed.? For radiation dose reduction, the following was used:? automated exposure control, adjustment of mA and/or kV according to patient size. ? COMPARISON:? [facility], CT, CT ABDOMEN PELVIS W CON, 03/03/2023, 9:23.? [facility], CT, CT ABDOMEN PELVIS W CON, 01/21/2023, 11:49. ? FINDINGS:? Image quality:? Excellent.? ? Lung bases:? Mild likely atelectasis can be seen at the lung bases. Heart:? No significant findings. ? ? ABDOMEN: Liver:? Unremarkable.? ? Gallbladder:? Unremarkable.? ? Biliary ducts:? Unremarkable.? ? Pancreas:? Unremarkable.? ? Spleen:? Unremarkable.? ? Adrenal Glands:? Unremarkable.? ? Kidneys and Ureters:? Unremarkable.? ? ? Stomach and Bowel:? Moderate wall thickening can be seen involving the distal descending colon and the proximal sigmoid colon, with moderate surrounding inflammatory change.? The degree of inflammatory change is slightly worse than on the 03/03/2023 examination. No findings of perforation or abscess can be seen. A normal appendix is seen. No dilated loops of small bowel are seen. ? Ventral Wall: ? No hernia.? Abdominal Nodes:? No retroperitoneal or mesenteric adenopathy by size criteria.? Vessels:? Aorta and inferior vena cava are normal in size.? Bilateral iliac vein stents are seen.? Is ? PELVIS: Pelvic Organs:? Unremarkable.? ? Bladder:? Unremarkable.? ? Pelvic Nodes: No enlarged lymph nodes.? Miscellaneous:? A moderately sized left groin hernia can be seen, as before. ? Bones:? Mild levoconvex scoliotic curvature is noted.? Age-appropriate bony de generative changes are seen.? IMPRESSION:? ? Mild interval worsening of the known diverticulitis involving the distal descending colon and the proximal sigmoid colon. ? No findings of perforation or abscess are seen. ? When clinically appropriate (following adequate treatment of the patient's current clinical episode) a colonoscopy is recommended for further evaluation for a potential underlying mass (if not already recently done). ? ? ? Additional findings:? Normal appendix Bilateral iliac vein stents ? Fat containing left groin hernia ? Dictated by: Kurtis Griffin M.D. on 03/07/2023 at 21:19 ? ? Approved by: Kurtis Griffin M.D. on 03/07/2023 at 21:25?? ECG Data Attestation: I personally reviewed and interpreted this ECG as follows: Interpretation: NSR 64, pr 182, qrs 84, [id number], No ST elevation or depression, no change from 03/03/23. NSR rate of 64, pr of 178, qrs of 86, qtc 433. No ST elevation or depression. MDM Narrative Medical decision making narrative: This is a 77-year-old female who presents with complaint of worsening nausea but improving pain who was diagnosed with diverticulitis on 03/03/[address] She also had a CT in January that showed diverticulitis at that time as well. Patient was treated with Cipro and Flagyl both times, 5 days total on 01/21/2023. Patient has had 4 days' worth of antibiotics has slightly worsened diverticulitis on CT today labs do not appear significantly worsened. Patient overall appears well. She states her pain is actually improving discussed with patient will try Augmentin twice daily see if this improves her but with low threshold to return. Discharge Plan Departure Patient Disposition: Home Clinical Impression: Diverticulitis Instructions: DI for Diverticulitis Activity Restrictions/Additional Instructions: Your imaging today shows that your diverticulitis is slightly worse. Please stop your ciprofloxacin and metronidazole and start Augmentin 1 tablet twice daily. prescription sent to [facility]. Turn if you are having fevers new or worsening abdominal back or flank pain, persistent nausea or vomiting, black or bloody stools, lightheadedness or passing out or other new or worsening symptoms. Prescriptions: New amoxicillin-pot clavulanate 875-125 mg tablet 1 tab PO BID Qty: 20 0RF No Action metronidazole 500 mg tablet 500 mg PO Q8H 7 Days Qty: 21 0RF ciprofloxacin HCl [Cipro] 500 mg tablet 500 mg PO BID Qty: 14 0RF Referrals: Miscellaneous,Doctor, MD [Primary Care Provider] - Stand Alone Forms: Patient Portal/API
[2023-03-08] MEDS: AMOXICILLIN/CLAV 875/125 MG 1 TAB PO (00:07)
[2023-03-08 00:16] VITALS: BP 154/78; PULSE 74; RESP 16; TEMP 36.4; O2SAT 98
== END 2023-03-08 00:18 | disposition home or self-care (01) ==
PROVIDERS: Emergency Provider Emergency Medicine
DX: K57.92 Diverticulitis of intestine, part unspecified, without perforation or abscess without bleeding (principal); R10.9 Unspecified abdominal pain
CPT/HCPCS: 36415; 74177; 80053; 81003; 81015; 83605; 83690; 85025; 93005; 99283; 99284; Q9967

== ENCOUNTER → 2023-03-31 09:19 | Outpatient (CLI) | payer MEDICARE, OTHER, SELFPAY ==
[2023-03-31 11:10] LABS: Add Manual Diff / Slide Review NO; Basophils Absolute Auto 100 /uL (0-100); Eosinophils Absolute Auto 100 /uL (0-450); Hematocrit 42.3 % (36-46); Hemoglobin 14.2 g/dL (12.0-16.0); Lymphocytes Absolute Auto 2200 /uL (1100-4500); Lymphocytes Percent Auto 31.3 % (25-40); Mean Corpuscular HGB Conc 33.6 % (30-36); Mean Corpuscular Hemoglobin 29.5 PG (26-34); Monocytes Absolute Auto 500 /uL (0-900); Neutrophils Absolute Auto 4200 /uL (1500-7000); Neutrophils Percent Auto 58.7 % (50-75); Platelet Count 293 X10^3/uL (150-400); Red Cell Distribution Width 15.1 % (11.6-14.8); White Blood Cell Count 7.1 X10^3/uL (4.5-11.0)
[2023-03-31 11:24] LABS: Alanine Aminotransferase 19 IU/L (<35); Albumin 4.1 g/dL (3.5-5.0); Albumin Globulin Ratio 1.2 (1.0-2.8); Alkaline Phosphatase 99 U/L (38-126); Aspartate Aminotransferase 25 IU/L (14-36); Bilirubin Total 0.6 mg/dL (0.2-1.3); Blood Urea Nitrogen 18 mg/dL (7-17); Calcium 9.2 mg/dL (8.4-10.2); Carbon Dioxide 29 mmol/L (22-32); Chloride 100 mmol/L (98-107); Estimated Glomerular Filt Rate > 60 mL/min (>60); Globulin 3.4 g/dL (1.7-4.1); Glucose 87 mg/dL (80-110); HEMOLYSIS < 15 (0-50); Potassium 4.3 mmol/L (3.4-5.1); Sodium 137 mmol/L (137-145); Total Protein 7.5 g/dL (6.3-8.2)
== END ==
PROVIDERS: Referring Provider Surgery; Visit Provider Surgery
DX: K57.33 Diverticulitis of large intestine without perforation or abscess with bleeding (principal)
CPT/HCPCS: 36415; 80053; 85025; 99213

== ENCOUNTER → 2023-04-07 15:03 | Outpatient (CLI) | payer MEDICARE, OTHER, SELFPAY ==
--- NOTE | 2023-04-07 15:05 | DI.CT.S_ITS ---
PROCEDURE: CT ABDOMEN PELVIS W CON INDICATIONS: Diverticulitis TECHNIQUE: After the administration of oral and IV contrast, axial sections were acquired from the lung bases to the pubic symphysis. Coronal and sagittal reformats were performed. For radiation dose reduction, the following was used: automated exposure control, adjustment of mA and/or kV according to patient size. COMPARISON: [facility], CT, CT ABDOMEN PELVIS W CON, 01/21/2023, 11:49. [facility], CT, CT ABDOMEN PELVIS W CON, 03/03/2023, 9:23. [facility], CT, CT ABDOMEN PELVIS W CON, 03/07/2023, 21:30. FINDINGS: Image quality: Excellent. Lung bases: There is a densely calcified granuloma seen within the right costophrenic angle, as on series 3, image 25. Heart: No significant findings. ABDOMEN: Liver: Unremarkable. Gallbladder: Unremarkable. Biliary ducts: Unremarkable. Pancreas: Unremarkable. Spleen: Unremarkable. Adrenal Glands: Unremarkable. Kidneys and Ureters: Focal areas of volume loss can be seen involving each kidney, right worse than left. Kidneys overall demonstrate normal size. Minimal to mild bilateral hydronephrosis can be seen. Stomach and Bowel: In this patient with this given history, scrutiny is given to the sigmoid colon. There is moderate sigmoid diverticulosis, with minimal wall thickening and mild inflammatory change. Inflammatory changes are clearly improved compared to the prior. No dilated loops of small bowel are seen. The stomach demonstrates no significant abnormality. Peritoneum: No abnormal intraperitoneal fluid. No free air. Ventral Wall: No hernia. Abdominal Nodes: No retroperitoneal or mesenteric adenopathy by size criteria. Vessels: Aorta and inferior vena cava are normal in size. Bilateral common iliac/external iliac venous stents can be seen, which appear patent. PELVIS: Pelvic Organs: This patient is status post hysterectomy. No adnexal masses are seen. Bladder: Unremarkable. Pelvic Nodes: No enlarged lymph nodes. Miscellaneous: There is a mild left groin hernia seen which primarily contains fat, although there is also 1 wall of proximal sigmoid colon seen within the hernia. Bones: Mild levoconvex scoliotic curvature is noted. Age-appropriate bony degenerative changes are seen. IMPRESSION: Clear numeral improvement of the previously seen diverticulitis. No findings of perforation or abscess can be seen. There is a left groin hernia seen, which primarily contains fat, although there is 1 wall of nondilated sigmoid colon seen herniated. Additional findings: Prior granulomatous exposure. Levoconvex scoliotic curvature Patent pelvic venous stents Hysterectomy Dictated by: Kurtis Griffin M.D. on 04/07/2023 at 16:27 Approved by: Kurtis Griffin M.D. on 04/07/2023 at 16:31
== END ==
PROVIDERS: Referring Provider Surgery; Visit Provider Surgery
DX: K57.92 Diverticulitis of intestine, part unspecified, without perforation or abscess without bleeding (principal); K46.9 Unspecified abdominal hernia without obstruction or gangrene; M41.9 Scoliosis, unspecified; Z90.710 Acquired absence of both cervix and uterus
CPT/HCPCS: 74177; Q9967

== ENCOUNTER 2023-05-13 06:19 | Day surgery (SDC) | payer MEDICARE, OTHER, SELFPAY ==
[2023-05-07 15:38] VITALS: BMI 27.9
[2023-05-13 06:44] VITALS: BMI 27.3
[2023-05-13 06:51] VITALS: BP 133/75; PULSE 67; RESP 16; TEMP 36.7; O2SAT 96
[2023-05-13] MEDS: LACTATED RINGERS 1,000 ML 42 ML IV (07:05)
--- NOTE | 2023-05-13 07:39 | PM.PREOP ---
Pre-operative Note COVID-19 COVID-19 status: Not tested Interval Note History & Physical reviewed/Exam performed by Physician: Yes Changes to H&P: No ASA Class (for procedural sedation): II
[2023-05-13] MEDS: CEFAZOLIN 2 GM/100 ML PREMIX 100 ML IV (07:58)
--- NOTE | 2023-05-13 08:13 | SUR.OPER ---
Supine on padded OR bed, head on pillow, arms secured on padded arm boards at <90 degrees abduction, legs uncrossed, safety belt at thigh, tape over blanket over lower legs. Gel pad under heels.
[2023-05-13] MEDS: BUPIVACAINE 0.5% (PF) 30 ML, EPINEPHrine 0.15 MG INJ (08:24)
[2023-05-13 08:57] VITALS: BP 103/58; PULSE 64; RESP 14; TEMP 36.6; O2SAT 96
--- NOTE | 2023-05-13 08:57 | PM.OP.1 ---
Operative Date/Time/Diagnoses Date of procedure: 05/13/23 Time of procedure: 08:57 Pre-op diagnosis: Left inguinal hernia Post-op diagnosis: same Procedure & Clinicians Procedure: Open left inguinal hernia repair with mesh Same procedure as scheduled: Yes Surgeon: Az Acosta [employer] Technologist: Jt Howell Anesthesia Type: General Operative Notes Procedure in detail: Preoperative antibiotic was administered. The patient was brought to the operating room and placed on the table in supine position general anesthesia was induced. The left groin was prepped and draped in the normal fashion and a time-out was performed. Roughly 10 mL of local anesthetic were injected into the skin and subcutaneous adipose tissue over the left groin. A 5 cm incision was made over the left inguinal canal. Dissection was carried down through the subcutaneous adipose tissue. A bridging vein was cauterized. We exposed the external oblique aponeurosis in the direction of the fibers. Additional local was injected deep to the aponeurosis. A 15 blade scalpel was used to sherman the external oblique aponeurosis. Metzenbaum scissors were used to carefully open the aponeurosis in the direction of the fibers taking care not to injure the underlying ilioinguinal nerve. We completely exposed the inguinal canal. There was a fat containing indirect hernia which was dissected free from the surrounding tissue and reduced. Round ligament was left intact. We placed a polypropylene mesh over the inguinal canal floor. The mesh was secured with multiple interrupted 3-0 Prolene sutures to the pubic tubercle and shelving edge of the inguinal ligament as well as to the conjoint tendon medially. The tails were overlapped and sutured together as well as to the inguinal ligament. We injected some more local into the fatty tissue in the inguinal canal and cord. Finally, we closed the external oblique fascia with a running 3-0 Vicryl suture. Skin was closed with interrupted 3-0 Vicryl dermal sutures and a running 4 Monocryl subcuticular stitch. EBL 5 mL The patient was awakened and brought to recovery room. Post-operative Condition: stable Disposition: PACU
[2023-05-13 09:02] VITALS: BP 99/56; PULSE 62; RESP 13; O2SAT 94
[2023-05-13 09:07] VITALS: BP 103/64; PULSE 64; RESP 15; O2SAT 96
[2023-05-13 09:15] VITALS: BP 121/69; PULSE 65; RESP 15; O2SAT 97
[2023-05-13 09:21] VITALS: BP 118/67; PULSE 61; RESP 15; TEMP 36.6; O2SAT 97
== END 2023-05-13 09:55 | disposition home or self-care (01) ==
PROVIDERS: Referring Provider Surgery; Visit Provider Surgery
PROC: (CPT 49505; principal; 2023-05-13 07:45)
DX: K40.90 Unilateral inguinal hernia, without obstruction or gangrene, not specified as recurrent (principal)
CPT/HCPCS: 49505; J0171; J0690; J1100; J1885; J2405; J2704; J3010

== ENCOUNTER 2023-06-26 12:40 | Day surgery (SDC) | payer MEDICARE, OTHER, SELFPAY ==
--- NOTE | 2023-06-26 | PATH_ITS ---
[facility] Accession Number: [id number] No. of containers..02 Tissue . 01 Material submitted: . PART A: colon - CECAL POLYP PART B: colon - DESCENDING POLYP . 01 Diagnosis: A. COLON, CECUM, POLYP BIOPSY: - BENIGN POLYPOID COLONIC MUCOSA WITH BENIGN LYMPHOID AGGREGATE. - NEGATIVE FOR DYSPLASIA. -- B. COLON, DESCENDING, POLYP BIOPSY: - TUBULAR ADENOMA TXN 07/09/2023 1317 Local . 01 Electronically signed: . José Miguel Schulte MD, Pathologist NPI- [id number] . 01 Gross description: . A. Received in formalin, labeled with the patient's name, , and cecal polyp, and consists of a single hopson, soft tissue fragment measuring 0.6 cm in greatest dimension. Submitted entirely in cassette A1. B. Received in formalin, labeled with the patient's name, , and descending polyp, and consists of a single hopson, soft tissue fragment measuring 0.7 cm in greatest dimension. Submitted entirely in cassette B1. ([id number]) /FRR 06/28/2023 1950 Local . 01 Pathologist provided ICD-10: Z12.11 . 01 CPT . 027188, [id number] Specimen Comment: A courtesy copy of this report has been sent to [phone] Performed at: 01 [facility] [address] [place] [address] [id number] MD John Escobar MD Phone: [phone]
--- NOTE | 2023-06-26 13:02 | P.HP_ITS ---
History of Present Illness History of Present Illness Date Patient Seen: 06/26/23 Time Patient Seen: 13:02 Chief complaint: Screening Colonoscopy Narrative: Cortney is a 77-year-old woman with history of diverticulitis. She underwent antibiotic therapy earlier this year with good results but lately she is wondering if she starting to have some more recurrent pain in the mornings. See prior office notes for more details. REPLACED BY [facility] Medical History (Updated 06/26/23 @ 13:03 by Az Acosta MD) Hypothyroidism Hyperlipemia Hypertension Surgical History H/O breast surgery History of heart bypass surgery H/O hernia repair H/O section Family History Mother Hypertension Diabetes mellitus Stroke Brother Heart disease Uncle Diabetes mellitus Aunt Diabetes mellitus Social History marital status: details: lives with adult daughter in [place] household members: family lives independently: Yes Smoking Status: Never smoker alcohol intake: current substance use type: does not use Meds Home Medications and Allergies Home Medications Medication Instructions Recorded Confirmed Type alendronate 70 mg tablet 70 mg PO QWEEK 03/17/23 06/16/23 History aspirin 81 mg tablet,delayed 81 mg PO DAILY 03/17/23 06/16/23 History release calcium carbonate 600 mg calcium 600 mg PO DAILY 03/17/23 06/16/23 History (1,500 mg) tablet (Calcium) levothyroxine 88 mcg capsule 88 mcg PO DAILY 03/17/23 06/16/23 History sodium chloride 5 % eye drops drp EYE-BOTH BID 03/17/23 06/16/23 History (Kishor 128) peg 3350-electrolytes 236 240 ml PO Q10M #4,000 mL 06/06/23 06/16/23 Rx gram-22.74 gram-6.74 gram-5.86 gram solution (Golytely) fluconazole 150 mg tablet 150 mg PO Q3D 2 doses #2 tabs 06/16/23 06/16/23 Rx hydroxychloroquine 200 mg tablet 200 mg PO BID 06/16/23 06/16/23 History lisinopril 10 1 tab PO DAILY #90 tabs 06/16/23 06/16/23 Rx mg-hydrochlorothiazide 12.5 mg tablet loratadine 10 mg disintegrating 10 mg PO DAILY 06/16/23 06/16/23 History tablet (Allergy Relief (loratadine)) Allergies Allergy/AdvReac Type Severity Reaction Status Date / Time acetaminophen AdvReac Unknown stomach Verified 06/26/23 13:02 pain ciprofloxacin AdvReac Unknown lethargy Verified 06/26/23 13:02 metronidazole AdvReac Unknown lethargy Verified 06/26/23 13:02 nitrofurantoin AdvReac Unknown lethargy Verified 06/26/23 13:02 aspirin AdvReac stomach Verified 06/26/23 13:02 pain Exam Const General: No acute distress Resp Effort & Inspection: normal respiratory effort Assessment & Plan Assessment and plan (1) Diverticulosis: Status: Acute Plan We reviewed the risks and benefits of colonoscopy for her history of diverticulosis and she would like to proceed.
[2023-06-26 13:12] VITALS: BP 145/78; PULSE 73; RESP 20; TEMP 36.7; O2SAT 98
[2023-06-26] MEDS: LACTATED RINGERS 1,000 ML 42 ML IV (13:18)
[2023-06-26 14:00] VITALS: BP 124/65; PULSE 65; RESP 10; TEMP 36.2; O2SAT 99
--- NOTE | 2023-06-26 14:03 | PM.OP.COLON ---
Operative Date/Time/Diagnoses Date of procedure: 06/26/23 Time of procedure: 14:03 Pre-op diagnosis: Diverticulosis Post-op diagnosis: same Procedure & Clinicians Study performed: Colonoscopy Same procedure as scheduled: Yes Surgeon: Az Acosta Procedure Notes Procedure in detail: Surgeon: Az Acosta MD Anesthesia: Naa Fagan CRNA Procedure: The patient was brought to the endoscopy suite, placed in left lateral decubitus position. The patient was connected to monitoring devices. A time-out was performed. Sedation was administered. Once the patient was adequately sedated, a digital rectal exam was performed and was normal. The scope was then inserted and advanced to the cecum where the appendiceal orifice was identified and photographed. The scope was then slowly withdrawn over greater than 6 minutes. The mucosa was thoroughly inspected. There was a 5 mm polyp in the cecum removed with a cold snare. There was a 7 mm polyp in the descending colon removed with a cold snare. There was moderate sigmoid diverticulosis. The scope was retroflexed in the rectum. There were internal hemorrhoids. The scope was straightened and removed. The patient was awakened and brought to recovery. Scope withdrawal time: 10 minutes Sedation time: 18 minutes EBL: 5 mL Findings: 5 mm polyp in the cecum, 7 mm polyp descending colon, diverticulosis Post-procedure Disposition: PACU
[2023-06-26 14:05] VITALS: BP 126/66; PULSE 61; RESP 13; O2SAT 98
[2023-06-26 14:10] VITALS: BP 129/67; PULSE 63; RESP 21; O2SAT 99
[2023-06-26 14:15] VITALS: BP 139/73; PULSE 61; RESP 21; O2SAT 100
[2023-06-26 14:25] VITALS: BP 140/62; PULSE 72; RESP 14; O2SAT 98
== END 2023-06-26 14:35 | disposition home or self-care (01) ==
PROVIDERS: PCP Student in an Organized Health Care Education/Training Program; Referring Provider Surgery; Visit Provider Surgery
PROC: 0DJD8ZZ Inspection of Lower Intestinal Tract, Via Natural or Artificial Opening Endoscopic (ICD-10-PCS; CPT 45378; principal; 2023-06-26 13:15)
DX: K57.30 Diverticulosis of large intestine without perforation or abscess without bleeding (principal); I10 Essential (primary) hypertension; E78.5 Hyperlipidemia, unspecified; E03.9 Hypothyroidism, unspecified; D12.4 Benign neoplasm of descending colon
CPT/HCPCS: 45385; 93005; 93010

== ENCOUNTER → 2023-07-21 10:37 | Outpatient (CLI) | payer MEDICARE, OTHER, SELFPAY ==
[2023-07-21 11:16] LABS: Add Manual Diff / Slide Review NO; Basophils Absolute Auto 0 /uL (0-100); Basophils Percent Auto 0.8 % (0-2); Eosinophils Absolute Auto 100 /uL (0-450); Hematocrit 41.3 % (36-46); Hemoglobin 13.9 g/dL (12.0-16.0); Lymphocytes Absolute Auto 2300 /uL (1100-4500); Lymphocytes Percent Auto 40.3 % (25-40); Mean Corpuscular HGB Conc 33.6 % (30-36); Mean Corpuscular Volume 89.5 fL (80-100); Monocytes Absolute Auto 400 /uL (0-900); Monocytes Percent Auto 7.7 % (3-14); Neutrophils Absolute Auto 2800 /uL (1500-7000); Neutrophils Percent Auto 49.2 % (50-75); Platelet Count 300 X10^3/uL (150-400); Red Blood Cell Count 4.61 X10^6/uL (4.0-5.2); Red Cell Distribution Width 14.7 % (11.6-14.8); White Blood Cell Count 5.7 X10^3/uL (4.5-11.0)
[2023-07-21 12:06] LABS: Hemoglobin A1C% w Est Avg Glu 5.4 % (4.0-6.0)
[2023-07-21 12:08] LABS: Alanine Aminotransferase 17 IU/L (<35); Albumin 4.2 g/dL (3.5-5.0); Albumin Globulin Ratio 1.2 (1.0-2.8); Alkaline Phosphatase 81 U/L (38-126); Aspartate Aminotransferase 26 IU/L (14-36); BUN Creatinine Ratio 19.8 (6-22); Bilirubin Total 0.8 mg/dL (0.2-1.3); Blood Urea Nitrogen 16 mg/dL (7-17); Calcium 9.6 mg/dL (8.4-10.2); Carbon Dioxide 31 mmol/L (22-32); Chloride 100 mmol/L (98-107); Cholesterol 206 mg/dL (140-199); Estimated Glomerular Filt Rate > 60 mL/min (>60); Globulin 3.4 g/dL (1.7-4.1); Glucose 99 mg/dL (80-110); HDL Cholesterol 64 mg/dL (40-60); HEMOLYSIS < 15 (0-50); LDL Cholesterol Calculated 122 mg/dL (<100); Potassium 3.8 mmol/L (3.4-5.1); Sodium 136 mmol/L (137-145); Total Protein 7.6 g/dL (6.3-8.2); Triglycerides 101 mg/dL (35-150)
[2023-07-21 12:34] LABS: TSH w/ Reflex to FT4 4.38 uIU/mL (0.47-4.68)
== END ==
PROVIDERS: PCP Student in an Organized Health Care Education/Training Program; Referring Provider Student in an Organized Health Care Education/Training Program; Visit Provider Student in an Organized Health Care Education/Training Program
DX: Z13.1 Encounter for screening for diabetes mellitus (principal); E78.5 Hyperlipidemia, unspecified; Z13.29 Encounter for screening for other suspected endocrine disorder; I10 Essential (primary) hypertension
CPT/HCPCS: 36415; 80053; 80061; 83036; 84443; 85025

== ENCOUNTER → 2023-07-28 | Outpatient (CLI) | payer MEDICARE, OTHER, SELFPAY ==
--- NOTE | 2023-07-28 07:54 | DI.MG.S_ITS ---
BILATERAL DIGITAL SCREENING MAMMOGRAM 3D/2D WITH CAD: 07/28/2023 CLINICAL: Routine screening. Comparison is made to exams dated: 05/08/2022 mammogram and 04/11/2021 mammogram - outside location. Both breasts are heterogeneously dense, which may obscure small masses (category c / 51-75% glandular tissue). Current study was also evaluated with a Computer Aided Detection (CAD) system. No significant masses, calcifications, or other findings are seen in either breast. There has been no significant interval change. IMPRESSION: NEGATIVE There is no mammographic evidence of malignancy. A 1 year screening mammogram is recommended. Based on the Tyrer Cuzick model (a risk assessment model) the patient's lifetime risk is 3.6% and her 10 year risk is 0.0%. According to the ACR, ACS, and NCCN guidelines, an annual breast MRI exam along with mammogram is recommended if the patient's lifetime risk is 20% or greater. This exam was interpreted at Station ID: [id number]. NOTE: For mammograms, a report in lay terms will be sent to the patient. Approximately 15% of breast malignancies will not be visualized mammographically. In the management of a palpable breast mass, a negative mammogram must not discourage biopsy of a clinically suspicious lesion. Electronically Signed By: Patrick donato/cheryl:08/06/2023 11:21:49 letter sent: Normal Exam ACR BI-RADS Category 1: Negative [id number]
== END ==
PROVIDERS: PCP Student in an Organized Health Care Education/Training Program; Referring Provider Student in an Organized Health Care Education/Training Program; Visit Provider Student in an Organized Health Care Education/Training Program
DX: Z12.31 Encounter for screening mammogram for malignant neoplasm of breast (principal)
CPT/HCPCS: 77063; 77067

== ENCOUNTER → 2024-07-12 15:11 | Outpatient (CLI) | payer MEDICARE, OTHER, SELFPAY ==
[2024-07-12 15:44] LABS: Add Manual Diff / Slide Review NO; Basophils Absolute Auto 100 /uL (0-100); Basophils Percent Auto 0.9 % (0-2); Eosinophils Absolute Auto 200 /uL (0-450); Eosinophils Percent Auto 2.7 % (2-4); Hematocrit 44.2 % (36-46); Hemoglobin 14.8 g/dL (12.0-16.0); Lymphocytes Absolute Auto 3300 /uL (1100-4500); Mean Corpuscular HGB Conc 33.6 % (30-36); Mean Corpuscular Hemoglobin 31.3 PG (26-34); Mean Corpuscular Volume 93.1 fL (80-100); Monocytes Absolute Auto 500 /uL (0-900); Monocytes Percent Auto 6.1 % (3-14); Neutrophils Absolute Auto 3400 /uL (1500-7000); Neutrophils Percent Auto 46.3 % (50-75); Platelet Count 272 X10^3/uL (150-400); Red Blood Cell Count 4.74 X10^6/uL (4.0-5.2); Red Cell Distribution Width 14.9 % (11.6-14.8); White Blood Cell Count 7.4 X10^3/uL (4.5-11.0)
[2024-07-12 16:03] LABS: Alanine Aminotransferase 23 IU/L (<35); Albumin 4.2 g/dL (3.5-5.0); Albumin Globulin Ratio 1.2 (1.0-2.8); Alkaline Phosphatase 92 U/L (38-126); Appearance Urine UA CLEAR; Aspartate Aminotransferase 32 IU/L (14-36); BUN Creatinine Ratio 20.7 (6-22); Bilirubin Total 0.8 mg/dL (0.2-1.3); Bilirubin Urine UA NEGATIVE (NEGATIVE); Blood Urea Nitrogen 19 mg/dL (7-17); Calcium 9.2 mg/dL (8.4-10.2); Carbon Dioxide 29 mmol/L (22-32); Chloride 105 mmol/L (98-107); Color Urine UA YELLOW; Estimated Glomerular Filt Rate > 60 mL/min (>60); Globulin 3.5 g/dL (1.7-4.1); Glucose 95 mg/dL (80-110); Glucose Urine UA NEGATIVE (Negative); HEMOLYSIS < 15 (0-50); Ketones Urine UA NEGATIVE (NEGATIVE); Leukocyte Esterase Urine UA NEGATIVE (NEGATIVE); Nitrite Urine UA NEGATIVE (Negative); Occult Blood Urine UA TRACE-INTACT (Negative); Potassium 3.5 mmol/L (3.4-5.1); Protein Urine UA NEGATIVE (Negative); Sodium 139 mmol/L (137-145); Total Protein 7.7 g/dL (6.3-8.2); Urobilinogen Urine UA 0.2 E.U./dL (0.2)
[2024-07-12 16:09] LABS: Bacteria Urine Few (2-10); RBC Urine 0-1/HPF (0-5/HPF); Squamous Epithelial Cell Urine 0-1 /HPF (0-5/HPF); Urine Volume 10mL (spun); WBC Urine 0-1/HPF (0-5/HPF)
[2024-07-12 16:10] LABS: Culture Indicated Urine Cult Not Indicated
== END ==
PROVIDERS: PCP Student in an Organized Health Care Education/Training Program; Referring Provider Surgery; Visit Provider Surgery
DX: K57.92 Diverticulitis of intestine, part unspecified, without perforation or abscess without bleeding (principal)
CPT/HCPCS: 80053; 81001; 85025; 99213

== ENCOUNTER → 2024-07-15 06:58 | Outpatient (CLI) | payer MEDICARE, OTHER, SELFPAY ==
--- NOTE | 2024-07-15 06:59 | DI.CT.S_ITS ---
PROCEDURE: CT ABDOMEN PELVIS W CON INDICATIONS: Diverticulitis TECHNIQUE: After the administration of intravenous contrast, axial sections acquired from the lung bases to the pubic symphysis. Coronal and sagittal reformats were performed. For radiation dose reduction, the following was used: automated exposure control, adjustment of mA and/or kV according to patient size. COMPARISON: [facility], CT, CT ABDOMEN PELVIS W CON, 04/07/2023, 16:45. [facility], CT, CT ABDOMEN PELVIS W CON, 03/07/2023, 21:30. FINDINGS: Image quality: Diagnostic. Lower Chest: Bibasilar atelectasis. Stable pleural-based calcified pulmonary nodule in the right lower lobe. No hiatal hernia. ABDOMEN: Liver: No solid mass. Hepatic steatosis. Gallbladder: No radiopaque gallstones or wall thickening. Biliary ducts: No biliary dilation. Pancreas: Homogeneous enhancement without focal lesions or pancreatic ductal dilatation. No peripancreatic inflammation or organized fluid collections. Spleen: Size is within normal limits. Adrenal Glands: No adrenal nodules. Kidneys and Ureters: No hydronephrosis. No solid mass. No complex renal cystic lesion which requires follow up. Redemonstration of renal cortical scarring. Bilateral ureters are normal in course and caliber. Stomach and Bowel: Normal colonic caliber, without significant wall thickening. Numerous scattered colonic diverticula without evidence for acute diverticulitis. Normal appendix. No evidence for small bowel obstruction or associated inflammatory changes. Peritoneum: No abnormal intraperitoneal fluid. No free air. Ventral Wall: No significant ventral hernia. Abdominal Nodes: No retroperitoneal or mesenteric adenopathy by size criteria. Vessels: Scattered atherosclerotic calcifications of the abdominal aorta and iliac vessels without aneurysmal dilatation. The inferior vena cava appears patent. Redemonstration of pelvic venous stents. PELVIS: Pelvic Organs: Status post hysterectomy. Bladder: No bladder wall thickening, accounting for underdistention. Pelvic Nodes: No enlarged lymph nodes. Miscellaneous: There is a prominent fat containing left inguinal hernia. Short segment of partially herniated proximal sigmoid colon is not visualized within the hernia on today's exam. No acute inflammatory changes. Bones: No aggressive osseous abnormality. No acute vertebral body compression fractures. Multilevel spondylitic changes throughout the imaged spine. No suspicious osseous lesions. IMPRESSION: 1. CT abdomen and pelvis without acute abnormalities. 2. Extensive colonic diverticulosis without evidence for acute diverticulitis. 3. Moderate sized fat containing left inguinal hernia. Previously seen partial herniation of the proximal sigmoid colon within the hernia is not visualized on today's exam. No acute inflammatory changes seen. 4. Hepatic steatosis. Other chronic/nonacute findings as above. Dictated by: Chang Harkins M.D. on 07/15/2024 at 23:24 Approved by: Chang Harkins M.D. on 07/15/2024 at 23:35
== END ==
PROVIDERS: PCP Student in an Organized Health Care Education/Training Program; Referring Provider Surgery; Visit Provider Surgery
DX: K57.92 Diverticulitis of intestine, part unspecified, without perforation or abscess without bleeding (principal); R91.1 Solitary pulmonary nodule; K76.0 Fatty (change of) liver, not elsewhere classified; K40.90 Unilateral inguinal hernia, without obstruction or gangrene, not specified as recurrent; Z90.710 Acquired absence of both cervix and uterus
CPT/HCPCS: 74177; Q9967

== ENCOUNTER 2024-07-27 13:10 | Day surgery (SDC) | payer MEDICARE, OTHER, SELFPAY ==
[2024-07-22 13:10] VITALS: BMI 27.8
[2024-07-27] VITALS (8 sets, daily range): BP systolic 127–152; BP diastolic 72–85; PULSE 59–67; RESP 12–25; TEMP 36.1–36.9; O2SAT 94–98; BMI 27.0
--- NOTE | 2024-07-27 14:36 | PM.PREOP ---
Pre-operative Note COVID-19 COVID-19 status: Not tested Interval Note History & Physical reviewed/Exam performed by Physician: Yes Changes to H&P: Yes H&P completed within 30 days and has changed as indicated here:: Cortney notes occasional right lower pain as well so we will add possible right inguinal hernia to consent ASA Class (for procedural sedation): II
[2024-07-27] MEDS: LACTATED RINGERS 1,000 ML 42 ML IV ×2 (15:00→16:28)
--- NOTE | 2024-07-27 15:25 | SUR.OPER ---
Supine on pink padded OR bed, head on pillow, arms padded and tucked at sides, legs uncrossed, safety belt at thigh, tape over blanket over lower legs .
[2024-07-27] MEDS: CEFAZOLIN 2 GM/100 ML PREMIX 100 ML IV (15:40)
[2024-07-27] MEDS: BUPIVACAINE 0.5% W/ EPI (PF) 10 ML VIAL INJ (15:55)
--- NOTE | 2024-07-27 16:59 | PM.OP.1 ---
Operative Date/Time/Diagnoses Date of procedure: 07/27/24 Time of procedure: 16:59 Pre-op diagnosis: Recurrent left inguinal hernia Post-op diagnosis: same Procedure & Clinicians Procedure: Laparoscopic lysis of adhesions and recurrent left inguinal hernia repair with mesh Same procedure as scheduled: Yes Surgeon: Az Acosta Public Service Director: Jt Howell Anesthesia Type: General Operative Notes Procedure in detail: The patient was given preoperative antibiotics. The patient was brought to the operating room, placed on the table in the supine position with the arms tucked and general anesthesia was induced. The abdomen was prepped and draped in the usual fashion. A time-out was performed. A 1 cm transverse incision was created superior to the umbilicus and dissection was carried down to the fascia. The fascia was grasped with a Laura clamp to elevate the abdominal wall. The fascia was scored transversely with cautery. A Peon clamp was used to fajardo the peritoneum. The Sherlyn port was placed and the abdomen was insufflated to 15 mmHg. The camera was inserted, there was no evidence of any injury from the entry. There were extensive adhesions of omentum and small bowel to the low midline incision. 5 mm ports were placed under direct vision in the mid left and mid right abdomen. An additional 5 mm port was placed in the right upper quadrant for lysis of adhesions. We carefully dissected the adhesions off the anterior abdominal wall using endo scissors. We could then see that there was a large indirect left inguinal hernia. We could see suture in the low midline fascial closure with no evidence of hernia and some suture in the right groin with no evidence of recurrent hernia. The patient was positioned in Trendelenburg. We created left peritoneal flap. The peritoneum was dissected off the left round ligament and the John's ligament was exposed. A large left Bard mesh was brought in and placed over the defect with the medial edge against John's ligament. We then closed the peritoneal flap with a running 3-0 barbed suture. We took one last look around the abdomen and saw no other abnormalities. The suture was removed and accounted for. The 5 mm ports were removed under direct vision. The abdomen was desufflated. The Sherlyn port was removed. Additional local was injected into the fascia and the fascial incision was closed with 2 interrupted 0 Vicryl sutures. The skin incisions were closed with 4 Monocryl, Steri-Strips and Band-Aids. EBL: 10 mL Jt PADILLA provided assistance with exposure, retraction and closure of incisions. Post-operative Condition: stable Disposition: PACU
[2024-07-27] MEDS: OXYCODONE IR 5 MG TABLET PO (17:36)
== END 2024-07-27 18:10 | disposition home or self-care (01) ==
PROVIDERS: PCP Student in an Organized Health Care Education/Training Program; Referring Provider Surgery; Visit Provider Surgery
PROC: 0YQ64ZZ Repair Left Inguinal Region, Percutaneous Endoscopic Approach (ICD-10-PCS; CPT 49651; principal; 2024-07-27 15:00)
DX: K40.91 Unilateral inguinal hernia, without obstruction or gangrene, recurrent (principal); K66.0 Peritoneal adhesions (postprocedural) (postinfection)
CPT/HCPCS: 49651; J0330; J0690; J2405; J2704; J3010

== ENCOUNTER → 2024-12-13 11:30 | Outpatient (CLI) | payer MEDICARE, OTHER, SELFPAY ==
--- NOTE | 2024-12-13 11:33 | DI.CT.S_ITS ---
PROCEDURE: CT ABDOMEN PELVIS W CON INDICATIONS: abdominal pain TECHNIQUE: After the administration of intravenous contrast, axial sections acquired from the lung bases to the pubic symphysis. Coronal and sagittal reformats were performed. For radiation dose reduction, the following was used: automated exposure control, adjustment of mA and/or kV according to patient size. COMPARISON: [facility], CT, CT ABDOMEN PELVIS W CON, 07/15/2024, 8:20. FINDINGS: Lower Chest: No significant findings. ABDOMEN: Liver: The liver is diffusely decreased in attenuation without focal mass lesion. Gallbladder: No radiopaque gallstones or wall thickening. Biliary ducts: No biliary dilation. Pancreas: No ductal dilation. Spleen: Size is within normal limits. Adrenal Glands: No adrenal nodules. Kidneys and Ureters: No hydronephrosis. No solid mass. No complex renal cystic lesion which requires follow up. Bilateral renal scarring Stomach and Bowel: Normal colonic caliber, without significant wall thickening. Multiple diverticula arise from the sigmoid colon without evidence of diverticulitis. Peritoneum: No abnormal intraperitoneal fluid. No free air. Ventral Wall: No significant ventral hernia. Abdominal Nodes: No retroperitoneal or mesenteric adenopathy by size criteria. Vessels: Bilateral iliac venous stents in good position PELVIS: Pelvic Organs: Hysterectomy. Bladder: No bladder wall thickening, accounting for underdistention. Pelvic Nodes: No enlarged lymph nodes. Miscellaneous: Left inguinal hernia(s) contain fat without bowel involvement. Bones: Degenerative disc disease and arthropathy noted in lower lumbar spine. IMPRESSION: No acute findings. No change from the prior exam Approved by: Nils Lopez M.D. on 12/13/2024 at 18:57
[2024-12-13 11:52] LABS: Add Manual Diff / Slide Review NO; Basophils Absolute Auto 100 /uL (0-100); Basophils Percent Auto 1.2 % (0-2); Eosinophils Absolute Auto 200 /uL (0-450); Eosinophils Percent Auto 3.9 % (2-4); Hematocrit 42.8 % (36-46); Hemoglobin 14.3 g/dL (12.0-16.0); Lymphocytes Absolute Auto 1900 /uL (1100-4500); Lymphocytes Percent Auto 32.7 % (25-40); Mean Corpuscular HGB Conc 33.4 % (30-36); Mean Corpuscular Hemoglobin 30.1 PG (26-34); Monocytes Absolute Auto 500 /uL (0-900); Monocytes Percent Auto 8.3 % (3-14); Neutrophils Absolute Auto 3100 /uL (1500-7000); Neutrophils Percent Auto 53.9 % (50-75); Platelet Count 232 X10^3/uL (150-400); Red Blood Cell Count 4.76 X10^6/uL (4.0-5.2); Red Cell Distribution Width 15.2 % (11.6-14.8); White Blood Cell Count 5.8 X10^3/uL (4.5-11.0)
[2024-12-13 12:06] LABS: Blood Urea Nitrogen 20 mg/dL (7-17); Calcium 9.3 mg/dL (8.4-10.2); Carbon Dioxide 31 mmol/L (22-32); Chloride 102 mmol/L (98-107); Estimated Glomerular Filt Rate > 60 mL/min (>60); Glucose 97 mg/dL (70-99); HEMOLYSIS < 15 (0-50); Potassium 3.8 mmol/L (3.4-5.1); Sodium 138 mmol/L (137-145)
== END ==
PROVIDERS: PCP Student in an Organized Health Care Education/Training Program; Referring Provider Surgery; Visit Provider Surgery
DX: R10.30 Lower abdominal pain, unspecified (principal); K57.30 Diverticulosis of large intestine without perforation or abscess without bleeding; K40.90 Unilateral inguinal hernia, without obstruction or gangrene, not specified as recurrent; M51.369 Other intervertebral disc degeneration, lumbar region without mention of lumbar back pain or lower extremity pain; M47.816 Spondylosis without myelopathy or radiculopathy, lumbar region; Z87.19 Personal history of other diseases of the digestive system; Z90.710 Acquired absence of both cervix and uterus
CPT/HCPCS: 36415; 74177; 80048; 85025; 99213; Q9967